=== PATIENT | male | born 1945 | race Caucasian/White ===

== ENCOUNTER 2019-02-19 08:31 | Inpatient (IN) | payer OTHER ==
[~2019-02-19] VITALS: Ht 185.4 cm; Wt 98.2 kg
[2019-02-19] MEDS ORDERED: TETanus/Pertussis (Acell)/Diphther VAC/PF (Tdap-Adult) 0.5ml syringe IMVAC ONE (09:05)
[2019-02-19 09:35] LABS: CLARITY,URINE CLEAR (Clear); COLOR,URINE YELLOW (Yellow); GLUCOSE, URINE >=1000 mg/dl (Neg); KETONES,URINE NEGATIVE (Neg); LEUKOCYTE ESTERASE ,URINE NEGATIVE (Neg); NITRITES, URINE NEGATIVE (Neg); OCCULT BLOOD,URINE TRACE-INTACT (Neg); PROTEIN,URINE 30 mg/dl (Neg); UA COLLECTION TYPE CLN CATCH MIDSTREAM; UROBILINOGEN,URINE 0.2 E.U/dL (0.2-1.0)
[2019-02-19 09:40] LABS: BASOPHILS # (AUTO) 0.1 X10'3 (0-0.2); BASOPHILS % (AUTO) 0.6 % (0-1); EOSINOPHILS # (AUTO) 0.2 X10'3 (0-0.9); HEMOGLOBIN 12.6 g/dl (14.0-17.9)
[2019-02-19 09:41] LABS: EOSINOPHILS % (AUTO) 1.1 % (0-6); HEMATOCRIT 37.5 % (42.0-52.0); LYMPHOCYTES % (AUTO) 5.3 % (21-51); MEAN CORPUSCULAR HEMOGLOBIN 28.2 PG (27.0-31.0); MEAN CORPUSCULAR HGB CONC 33.6 g/dL (33.0-36.5); MEAN PLATELET VOLUME 7.8 FL (7.4-10.4); MONOCYTES # (AUTO) 1.4 X10'3 (0-0.9); MONOCYTES % (AUTO) 7.9 % (2-12); NEUTROPHILS # (AUTO) 15.4 X10'3 (1.8-7.7); NEUTROPHILS % (AUTO) 85.1 % (42-75); PLATELET COUNT 250 X10'3 (140-440); RED BLOOD COUNT 4.46 X10'6 (4.70-6.10); RED CELL DISTRIBUTION WIDTH 12.4 % (11.5-14.5); WHITE BLOOD COUNT 18.1 X10'3 (4.5-11.0)
[2019-02-19 09:48] LABS: SQUAMOUS EPITHELIAL CELL,UR FEW /LPF (FEW)
[2019-02-19 09:49] LABS: BACTERIA,URINE FEW /HPF (Neg); RBC,URINE 0-2 /HPF (0-2); WBC,URINE 0-4 /HPF (0-4)
[2019-02-19 09:55] LABS: ALANINE AMINOTRANSFERASE 18 U/L (12-78); ALBUMIN 2.6 G/DL (3.4-5.0); ALBUMIN/GLOBULIN RATIO 0.5 (1.1-1.5); ALKALINE PHOSPHATASE 98 IU/L (46-116); ANION GAP 8 (8-16); ASPARTATE AMINO TRANSFERASE 9 U/L (10-37); BILIRUBIN,TOTAL 0.6 MG/DL (0.1-1.0); BLOOD UREA NITROGEN 17 MG/DL (7-18); BUN/CREATININE RATIO 17.3 (5.4-32.0); CHLORIDE 101 MMOL/L (99-107); CREATININE 0.98 MG/DL (0.60-1.10); GLUCOSE 275 MG/DL (70-104); POTASSIUM 4.3 MMOL/L (3.5-5.1); SODIUM 135 MMOL/L (135-145); TOTAL CARBON DIOXIDE 26.2 MMOL/L (24-32); TOTAL PROTEIN 7.5 G/DL (6.4-8.2); eGFR 75 ML/MIN
[2019-02-19] MEDS ORDERED: vancomycin/NS 1 GM ADD-VANTAGE 250 ML IV ONE (09:55)
[2019-02-19] MEDS ORDERED: mag hydrox/Alum hydrox/simeth 30ml oral suspension PO PRN (10:05)
[2019-02-19] MEDS ORDERED: MESSAGE TO PHARMACY PO ONE (10:05)
[2019-02-19] MEDS ORDERED: morphine 2 MG/ML inj. syringe IV PRN ×2 (10:05)
[2019-02-19] MEDS ORDERED: magnesium hydroxide 30ml (MOM) UD suspension PO PRN (10:05)
[2019-02-19] MEDS ORDERED: dextrose 50%-water 50ml dispensing syringe IV PRN ×2 (10:05)
[2019-02-19] MEDS ORDERED: dextrose ORAL solution 15 GM/59 ML bottle PO PRN ×2 (10:05)
[2019-02-19] MEDS ORDERED: ondansetron/PF 4mg/2ml inj IV PRN (10:05)
[2019-02-19] MEDS ORDERED: glucagon, human recombinant 1mg kit SUBCUT PRN (10:05)
[2019-02-19] MEDS ORDERED: acetaminophen 325mg tablet PO PRN ×2 (10:05)
[2019-02-19 10:22] LABS: HEMOGLOBIN A1C 11.3 % (4.5-6.2)
--- NOTE | 2019-02-19 12:11 | NUR ---
Patient in room ED 13. I have received report from Lexus and had the opportunity to ask questions and assume patient care.
--- NOTE | 2019-02-19 12:20 | NUR ---
Pt arrived on the floor. Tucked in, provided 2 lunch trays and provided comfort measures. Pt is alert, oriented and does not express concerns at this time
[2019-02-19] MEDS ORDERED: ATOR10TA70 PO (15:04)
[2019-02-19] MEDS ORDERED: CADE40GE2 TP (15:04)
[2019-02-19] MEDS ORDERED: AMLO2.5T2 PO (15:04)
[2019-02-19] MEDS ORDERED: ALOG25TA2 PO (15:04)
[2019-02-19] MEDS ORDERED: LISI40TA4 PO (15:04)
[2019-02-19] MEDS ORDERED: INSU100I25 SQ (15:04)
[2019-02-19] MEDS ORDERED: AMLO5TAB PO (15:51)
[2019-02-19] MEDS: piperacillin/tazo 4.5gm/100ml 100 ML IV SCH ×2 (16:21→23:34)
[2019-02-19 18:00] VITALS: BP 155/75
--- NOTE | 2019-02-19 18:10 | NUR ---
Problems reprioritized. Patient report given, questions answered & plan of care reviewed with Amber Morrison
[2019-02-19] MEDS: insulin Lispro (HumaLOG) vial - multi-dose SQ SCH ×2 (18:30→20:48)
[2019-02-19] MEDS ORDERED: vancomycin/NS 1 GM ADD-VANTAGE 250 ML IV SCH (20:00)
[2019-02-19] MEDS ORDERED: VANCOmycin 1250MG/NS 250ml Bag 250 ML IV SCH (20:00)
[2019-02-19] MEDS: lactobacillus rhamnosus 10,000 MMU CELLS/CAPSULE PO SCH (20:49)
[2019-02-19] MEDS: insulin glargine (Lantus) pen - multi-dose SQ SCH (20:49)
[2019-02-19 22:00] VITALS: BP 153/72
[2019-02-19] MEDS: VANCOmycin 1250MG/NS 250ml Bag 250 ML IV SCH (22:00)
[2019-02-20] VITALS (16 sets, daily range): BP systolic 135–184; BP diastolic 66–90
[2019-02-20 05:45] LABS: BASOPHILS % (AUTO) 0.3 % (0-1); EOSINOPHILS # (AUTO) 0.3 X10'3 (0-0.9); EOSINOPHILS % (AUTO) 2.4 % (0-6); HEMATOCRIT 35.8 % (42.0-52.0); HEMOGLOBIN 12.1 g/dl (14.0-17.9); LYMPHOCYTES # (AUTO) 1.1 X10'3 (1.1-4.8); LYMPHOCYTES % (AUTO) 7.9 % (21-51); MEAN CORPUSCULAR HEMOGLOBIN 28.6 PG (27.0-31.0); MEAN CORPUSCULAR HGB CONC 33.8 g/dL (33.0-36.5); MEAN CORPUSCULAR VOLUME 84.8 FL (78-98); MEAN PLATELET VOLUME 7.4 FL (7.4-10.4); MONOCYTES # (AUTO) 1.4 X10'3 (0-0.9); MONOCYTES % (AUTO) 9.8 % (2-12); NEUTROPHILS # (AUTO) 11.3 X10'3 (1.8-7.7); NEUTROPHILS % (AUTO) 79.6 % (42-75); PLATELET COUNT 235 X10'3 (140-440); RED BLOOD COUNT 4.22 X10'6 (4.70-6.10); RED CELL DISTRIBUTION WIDTH 12.2 % (11.5-14.5); WHITE BLOOD COUNT 14.3 X10'3 (4.5-11.0)
[2019-02-20 06:02] LABS: ALBUMIN 2.1 G/DL (3.4-5.0); ANION GAP 6 (8-16); BLOOD UREA NITROGEN 14 MG/DL (7-18); BUN/CREATININE RATIO 15.2 (5.4-32.0); CALCIUM 8.6 MG/DL (8.5-10.1); CHLORIDE 103 MMOL/L (99-107); CREATININE 0.92 MG/DL (0.60-1.10); GLUCOSE 253 MG/DL (70-104); POTASSIUM 4.2 MMOL/L (3.5-5.1); SODIUM 138 MMOL/L (135-145); TOTAL CARBON DIOXIDE 28.7 MMOL/L (24-32); eGFR 81 ML/MIN
--- NOTE | 2019-02-20 06:11 | NUR ---
received report from kev escalona
--- NOTE | 2019-02-20 06:15 | NUR ---
Report given to Mayra HERNANDEZ.
[2019-02-20] MEDS: lactobacillus rhamnosus 10,000 MMU CELLS/CAPSULE PO SCH ×2 (07:07→21:06)
[2019-02-20] MEDS: atorvastatin 10mg tablet PO SCH (07:07)
[2019-02-20] MEDS: amLODIPine 5mg tablet PO SCH (07:08)
[2019-02-20] MEDS: lisinopril 20mg tablet PO SCH (07:09)
[2019-02-20] MEDS: piperacillin/tazo 4.5gm/100ml 100 ML IV SCH ×3 (07:10→23:52)
[2019-02-20] MEDS: insulin Lispro (HumaLOG) vial - multi-dose SQ SCH ×4 (08:12→21:11)
[2019-02-20] MEDS: VANCOmycin 1250MG/NS 250ml Bag 250 ML IV SCH ×3 (10:30→21:52)
--- NOTE | 2019-02-20 10:31 | NUR ---
SCANNER ON COMPUTER NOT WORKING, CHECKED VANCTim PRIOR TO ADMIN, CONTINUE TO MONITOR
[2019-02-20] MEDS ORDERED: BUPIVAcaine/PF 2.5 mg/ml (0.25%) 30ml vial ONE (12:58)
--- NOTE | 2019-02-20 14:13 | NUR ---
pt wheeled down to OR with 1400 abx per Gabi in OR
[2019-02-20] MEDS ORDERED: ringers solution, lacted 1,000 ML IV SCH (14:54)
[2019-02-20] MEDS ORDERED: morphine 4 MG/ML inj SYRINge IV PRN (14:55)
[2019-02-20] MEDS ORDERED: ondansetron/PF 4mg/2ml inj IV PRN (14:55)
[2019-02-20] MEDS ORDERED: HYDROmorphone inj. 0.5 MG/0.5 ML DISP.SYRIN IV PRN (14:55)
[2019-02-20] MEDS ORDERED: fentaNYL/PF 50MCG/1 ML 2ML syringe ONE ×2 (14:58→15:15)
[2019-02-20] MEDS ORDERED: midazolam 2 mg/2 ml injection ONE (15:02)
[2019-02-20] MEDS ORDERED: ketamine 50mg/5ml syringe ONE (15:11)
[2019-02-20] MEDS ORDERED: labetalol 20mg/4ml (5mg/ml) syringe IV ONE (15:36)
[2019-02-20] MEDS ORDERED: propofol inj 20 ML IV ONE (15:36)
[2019-02-20] MEDS ORDERED: LIDOcaine 2% (20mg/ml) 5ml vial ONE (15:36)
[2019-02-20] MEDS ORDERED: BUPIVAcaine/PF 7.5mg/ml (0.75%) 10ml vial ONE (15:36)
--- NOTE | 2019-02-20 15:45 | NUR ---
Received from OR via BED, accompanied by Anesthesiologist DR GIVENS and report given by Anesthesiolgist. PATIENT A&OX4, DENIES PAIN, V/S WNL, NEUROVASCULAR CHECKS INTACT, 20G PIV RUE, SCD ON, WV DRESSING TO LEFT FOOT AT 125 CONTINOUS SUCTION WITH NO LEAKS DETECTED CDI ELEVATED
--- NOTE | 2019-02-20 16:15 | NUR ---
PATIENT A&OX4, DENIES PAIN, V/S WNL, NEUROVASCULAR CHECKS INTACT, 20G PIV RUE, SCD ON, WV DRESSING TO LEFT FOOT AT 125 CONTINOUS SUCTION WITH NO LEAKS DETECTED CDI ELEVATED . PATIWENT TAKEN TO 4017 WITH ALL BELONGINGS AND HOOKED UP TO MONITORS IN ROOM AND REPORT GIVEN TO PULMONOLOGIST/INTENSIVIST WHO HAS TAKEN OVER PATIENT CARE.
--- NOTE | 2019-02-20 17:10 | NUR ---
Patient given written DM education handout with verbal review and referral to outpatient DM education class on Sunday. Pt given written RD contact information. Addendum: 02/20/19 at [address] Amended: Links added.
--- NOTE | 2019-02-20 18:15 | NUR ---
report given to pola angulo
[2019-02-20] MEDS: HYDROcodone/acetaminophen 5mg/325mg tablet PO PRN (18:46)
[2019-02-20] MEDS: insulin glargine (Lantus) pen - multi-dose SQ SCH (21:12)
[2019-02-21 02:04] VITALS: BP 151/73
[2019-02-21] MEDS: HYDROcodone/acetaminophen 5mg/325mg tablet PO PRN (05:18)
[2019-02-21 05:50] LABS: ANION GAP 3 (8-16); BLOOD UREA NITROGEN 13 MG/DL (7-18); BUN/CREATININE RATIO 14.3 (5.4-32.0); CALCIUM 8.4 MG/DL (8.5-10.1); CHLORIDE 105 MMOL/L (99-107); CREATININE 0.91 MG/DL (0.60-1.10); GLUCOSE 203 MG/DL (70-104); POTASSIUM 4.2 MMOL/L (3.5-5.1); SODIUM 138 MMOL/L (135-145); TOTAL CARBON DIOXIDE 29.9 MMOL/L (24-32); eGFR 82 ML/MIN
[2019-02-21 05:54] LABS: BASOPHILS # (AUTO) 0.1 X10'3 (0-0.2); BASOPHILS % (AUTO) 0.4 % (0-1); EOSINOPHILS # (AUTO) 0.3 X10'3 (0-0.9); EOSINOPHILS % (AUTO) 2.1 % (0-6); HEMATOCRIT 35.1 % (42.0-52.0); HEMOGLOBIN 12.1 g/dl (14.0-17.9); LYMPHOCYTES # (AUTO) 1.2 X10'3 (1.1-4.8); LYMPHOCYTES % (AUTO) 9.7 % (21-51); MEAN CORPUSCULAR HEMOGLOBIN 28.6 PG (27.0-31.0); MEAN CORPUSCULAR HGB CONC 34.4 g/dL (33.0-36.5); MEAN CORPUSCULAR VOLUME 83.2 FL (78-98); MEAN PLATELET VOLUME 7.4 FL (7.4-10.4); MONOCYTES # (AUTO) 1.3 X10'3 (0-0.9); MONOCYTES % (AUTO) 9.9 % (2-12); NEUTROPHILS % (AUTO) 77.9 % (42-75); PLATELET COUNT 255 X10'3 (140-440); RED BLOOD COUNT 4.22 X10'6 (4.70-6.10); RED CELL DISTRIBUTION WIDTH 12.7 % (11.5-14.5); WHITE BLOOD COUNT 12.8 X10'3 (4.5-11.0)
[2019-02-21 06:00] VITALS: BP 148/64
--- NOTE | 2019-02-21 06:14 | NUR ---
Problems reprioritized. Patient report given, questions answered & plan of care reviewed with MARY Perez.
--- NOTE | 2019-02-21 06:30 | NUR ---
Patient in room ORTHO 4017. I have received report from Yolanda HERNANDEZ and had the opportunity to ask questions and assume patient care.
[2019-02-21] MEDS: atorvastatin 10mg tablet PO SCH (07:28)
[2019-02-21] MEDS: lactobacillus rhamnosus 10,000 MMU CELLS/CAPSULE PO SCH ×2 (07:31→20:00)
[2019-02-21] MEDS: lisinopril 20mg tablet PO SCH (07:31)
[2019-02-21] MEDS: amLODIPine 5mg tablet PO SCH (07:31)
[2019-02-21] MEDS: piperacillin/tazo 4.5gm/100ml 100 ML IV SCH ×2 (07:34→16:02)
[2019-02-21] MEDS: insulin Lispro (HumaLOG) vial - multi-dose SQ SCH ×4 (08:37→21:34)
[2019-02-21] MEDS ORDERED: VANCOMYCIN LEVEL IV ONE (09:30)
[2019-02-21 09:47] VITALS: BP 133/66
[2019-02-21] MEDS: VANCOmycin 1250MG/NS 250ml Bag 250 ML IV SCH (11:30)
[2019-02-21 14:00] VITALS: BP 161/76
[2019-02-21] MEDS: HYDROcodone/acetaminophen 10/325mg tab PO PRN (14:32)
[2019-02-21] MEDS ORDERED: magnesium hydroxide 30ml (MOM) UD suspension PO ONE (16:40)
[2019-02-21 18:00] VITALS: BP 163/80
--- NOTE | 2019-02-21 18:13 | NUR ---
Problems reprioritized. Patient report given, questions answered & plan of care reviewed with Rubens HERNANDEZ.
--- NOTE | 2019-02-21 19:00 | NUR ---
Patient in room ORTHO 4017. I have received report from Ana HERNANDEZ and had the opportunity to ask questions and assume patient care.
[2019-02-21] MEDS: docusate sod 100mg capsule PO SCH (20:00)
[2019-02-21] MEDS: insulin glargine (Lantus) pen - multi-dose SQ SCH (21:33)
[2019-02-21 22:00] VITALS: BP 142/67
[2019-02-22] MEDS: piperacillin/tazo 4.5gm/100ml 100 ML IV SCH ×3 (01:23→17:10)
[2019-02-22 06:00] VITALS: BP 155/72
[2019-02-22 06:25] LABS: ANION GAP 7 (8-16); BASOPHILS % (AUTO) 0.4 % (0-1); BLOOD UREA NITROGEN 11 MG/DL (7-18); BUN/CREATININE RATIO 11.8 (5.4-32.0); CALCIUM 8.8 MG/DL (8.5-10.1); CHLORIDE 104 MMOL/L (99-107); CREATININE 0.93 MG/DL (0.60-1.10); EOSINOPHILS # (AUTO) 0.3 X10'3 (0-0.9); EOSINOPHILS % (AUTO) 2.6 % (0-6); GLUCOSE 194 MG/DL (70-104); HEMATOCRIT 36.6 % (42.0-52.0); HEMOGLOBIN 12.4 g/dl (14.0-17.9); LYMPHOCYTES # (AUTO) 1.3 X10'3 (1.1-4.8); LYMPHOCYTES % (AUTO) 9.6 % (21-51); MEAN CORPUSCULAR HEMOGLOBIN 28.5 PG (27.0-31.0); MEAN CORPUSCULAR HGB CONC 33.9 g/dL (33.0-36.5); MEAN CORPUSCULAR VOLUME 84.3 FL (78-98); MEAN PLATELET VOLUME 7.4 FL (7.4-10.4); MONOCYTES # (AUTO) 1.1 X10'3 (0-0.9); MONOCYTES % (AUTO) 8.5 % (2-12); NEUTROPHILS # (AUTO) 10.4 X10'3 (1.8-7.7); NEUTROPHILS % (AUTO) 78.9 % (42-75); PLATELET COUNT 285 X10'3 (140-440); POTASSIUM 4.2 MMOL/L (3.5-5.1); RED BLOOD COUNT 4.35 X10'6 (4.70-6.10); RED CELL DISTRIBUTION WIDTH 12.7 % (11.5-14.5); SODIUM 139 MMOL/L (135-145); TOTAL CARBON DIOXIDE 28.5 MMOL/L (24-32); WHITE BLOOD COUNT 13.2 X10'3 (4.5-11.0); eGFR 80 ML/MIN
[2019-02-22] MEDS: docusate sod 100mg capsule PO SCH ×2 (07:39→20:48)
[2019-02-22] MEDS: atorvastatin 10mg tablet PO SCH (07:40)
[2019-02-22] MEDS: lactobacillus rhamnosus 10,000 MMU CELLS/CAPSULE PO SCH ×2 (07:40→20:48)
[2019-02-22] MEDS: amLODIPine 5mg tablet PO SCH (07:40)
[2019-02-22] MEDS: lisinopril 20mg tablet PO SCH (07:45)
[2019-02-22] MEDS: HYDROcodone/acetaminophen 10/325mg tab PO PRN ×2 (07:58→13:58)
[2019-02-22] MEDS: insulin Lispro (HumaLOG) vial - multi-dose SQ SCH ×4 (09:17→20:56)
[2019-02-22 10:00] VITALS: BP 141/72
--- NOTE | 2019-02-22 16:37 | NUR ---
PAGER ID: [phone] MESSAGE: Jewels [phone] re Williams Rasmussen in 4016- unable to obtain/keep iv access, pt is mrsa+, can we switch to PO or is it too soon? Due for Zosyn at this time. Is it still needed in light of current micro? Please advise, thanks!
[2019-02-22 18:00] VITALS: BP 147/80
--- NOTE | 2019-02-22 18:06 | NUR ---
Patient report given, questions answered & plan of care reviewed with Kira HERNANDEZ.
[2019-02-22] MEDS: insulin glargine (Lantus) pen - multi-dose SQ SCH (20:54)
[2019-02-22 22:00] VITALS: BP 157/78
[2019-02-23] MEDS: piperacillin/tazo 4.5gm/100ml 100 ML IV SCH ×3 (03:10→16:05)
[2019-02-23] MEDS: HYDROcodone/acetaminophen 10/325mg tab PO PRN ×3 (03:52→20:55)
[2019-02-23 06:00] VITALS: BP 124/66
--- NOTE | 2019-02-23 06:12 | NUR ---
REPORT GIVEN TO MARY ALLRED.
--- NOTE | 2019-02-23 06:15 | NUR ---
received report from kev moser
[2019-02-23 06:50] LABS: BASOPHILS % (AUTO) 0.4 % (0-1); EOSINOPHILS # (AUTO) 0.3 X10'3 (0-0.9); EOSINOPHILS % (AUTO) 2.3 % (0-6); HEMOGLOBIN 11.8 g/dl (14.0-17.9); LYMPHOCYTES # (AUTO) 1.3 X10'3 (1.1-4.8); LYMPHOCYTES % (AUTO) 10.4 % (21-51); MEAN CORPUSCULAR HEMOGLOBIN 28.7 PG (27.0-31.0); MEAN CORPUSCULAR HGB CONC 33.8 g/dL (33.0-36.5); MEAN CORPUSCULAR VOLUME 84.7 FL (78-98); MEAN PLATELET VOLUME 7.5 FL (7.4-10.4); MONOCYTES % (AUTO) 7.6 % (2-12); NEUTROPHILS # (AUTO) 10.1 X10'3 (1.8-7.7); NEUTROPHILS % (AUTO) 79.3 % (42-75); PLATELET COUNT 268 X10'3 (140-440); RED BLOOD COUNT 4.13 X10'6 (4.70-6.10); RED CELL DISTRIBUTION WIDTH 12.9 % (11.5-14.5); WHITE BLOOD COUNT 12.7 X10'3 (4.5-11.0)
[2019-02-23 06:53] LABS: ALBUMIN 1.9 G/DL (3.4-5.0); ANION GAP 8 (8-16); BLOOD UREA NITROGEN 12 MG/DL (7-18); BUN/CREATININE RATIO 11.9 (5.4-32.0); CALCIUM 8.3 MG/DL (8.5-10.1); CHLORIDE 103 MMOL/L (99-107); CREATININE 1.01 MG/DL (0.60-1.10); GLUCOSE 209 MG/DL (70-104); SODIUM 138 MMOL/L (135-145); TOTAL CARBON DIOXIDE 27.4 MMOL/L (24-32); eGFR 73 ML/MIN
[2019-02-23] MEDS: amLODIPine 5mg tablet PO SCH (07:23)
[2019-02-23] MEDS: lactobacillus rhamnosus 10,000 MMU CELLS/CAPSULE PO SCH ×2 (07:23→20:55)
[2019-02-23] MEDS: atorvastatin 10mg tablet PO SCH (07:23)
[2019-02-23] MEDS: lisinopril 20mg tablet PO SCH (07:24)
[2019-02-23] MEDS: docusate sod 100mg capsule PO SCH ×2 (07:24→20:00)
[2019-02-23] MEDS: insulin Lispro (HumaLOG) vial - multi-dose SQ SCH ×4 (08:44→21:04)
[2019-02-23 10:00] VITALS: BP 151/81
[2019-02-23] MEDS ORDERED: VANCOMYCIN LEVEL IV ONE (12:30)
[2019-02-23 18:00] VITALS: BP_SYST 128; BP_SYST 153; BP_DIAS 76; BP_DIAS 83
--- NOTE | 2019-02-23 18:17 | NUR ---
gave report to july,
[2019-02-23] MEDS: insulin glargine (Lantus) pen - multi-dose SQ SCH (21:03)
[2019-02-23 22:00] VITALS: BP 151/70
[2019-02-24] VITALS (17 sets, daily range): BP systolic 119–186; BP diastolic 52–87
[2019-02-24] MEDS ORDERED: VANCOMYCIN LEVEL IV ONE (00:30)
[2019-02-24] MEDS: piperacillin/tazo 4.5gm/100ml 100 ML IV SCH ×3 (00:33→17:52)
[2019-02-24 01:20] LABS: ANION GAP 5 (8-16); BASOPHILS # (AUTO) 0.1 X10'3 (0-0.2); BASOPHILS % (AUTO) 0.6 % (0-1); BLOOD UREA NITROGEN 13 MG/DL (7-18); BUN/CREATININE RATIO 13.7 (5.4-32.0); CALCIUM 8.7 MG/DL (8.5-10.1); CHLORIDE 103 MMOL/L (99-107); CREATININE 0.95 MG/DL (0.60-1.10); EOSINOPHILS # (AUTO) 0.3 X10'3 (0-0.9); EOSINOPHILS % (AUTO) 2.6 % (0-6); GLUCOSE 217 MG/DL (70-104); HEMATOCRIT 36.6 % (42.0-52.0); HEMOGLOBIN 12.4 g/dl (14.0-17.9); LYMPHOCYTES # (AUTO) 1.6 X10'3 (1.1-4.8); LYMPHOCYTES % (AUTO) 12.3 % (21-51); MEAN CORPUSCULAR HEMOGLOBIN 28.5 PG (27.0-31.0); MEAN CORPUSCULAR HGB CONC 33.7 g/dL (33.0-36.5); MEAN CORPUSCULAR VOLUME 84.3 FL (78-98); MEAN PLATELET VOLUME 7.3 FL (7.4-10.4); MONOCYTES # (AUTO) 0.9 X10'3 (0-0.9); MONOCYTES % (AUTO) 7.1 % (2-12); NEUTROPHILS # (AUTO) 9.7 X10'3 (1.8-7.7); NEUTROPHILS % (AUTO) 77.4 % (42-75); PLATELET COUNT 296 X10'3 (140-440); POTASSIUM 3.5 MMOL/L (3.5-5.1); RED BLOOD COUNT 4.34 X10'6 (4.70-6.10); RED CELL DISTRIBUTION WIDTH 12.7 % (11.5-14.5); SODIUM 139 MMOL/L (135-145); WHITE BLOOD COUNT 12.6 X10'3 (4.5-11.0); eGFR 78 ML/MIN
[2019-02-24] MEDS: HYDROcodone/acetaminophen 10/325mg tab PO PRN (03:10)
--- NOTE | 2019-02-24 06:11 | NUR ---
received report from roc, rn
[2019-02-24] MEDS: lactobacillus rhamnosus 10,000 MMU CELLS/CAPSULE PO SCH ×2 (07:41→19:43)
[2019-02-24] MEDS: docusate sod 100mg capsule PO SCH ×2 (07:41→19:43)
[2019-02-24] MEDS: lisinopril 20mg tablet PO SCH (07:42)
[2019-02-24] MEDS: atorvastatin 10mg tablet PO SCH (07:42)
[2019-02-24] MEDS: amLODIPine 5mg tablet PO SCH (07:42)
[2019-02-24] MEDS: insulin Lispro (HumaLOG) vial - multi-dose SQ SCH ×3 (08:35→19:02)
[2019-02-24] MEDS: diphenhydrAMINE 25mg capsule PO PRN (09:30)
--- NOTE | 2019-02-24 10:32 | NUR ---
gave report to hilario in recovery
--- NOTE | 2019-02-24 10:37 | NUR ---
pt wheeled down to or
--- NOTE | 2019-02-24 10:38 | NUR ---
sent pt 0800 cuauhtemoc to or w/patient
[2019-02-24] MEDS ORDERED: fentaNYL/PF 50MCG/1 ML 2ML syringe ONE (11:23)
[2019-02-24] MEDS ORDERED: MIDAZolam 5mg/5ml vial ONE (11:23)
[2019-02-24] MEDS ORDERED: propofol inj 20 ML IV ONE (12:00)
[2019-02-24] MEDS ORDERED: ROPIVAcaine 0.5% (5mg/ml) 30ml vial ONE (12:00)
--- NOTE | 2019-02-24 12:10 | NUR ---
Received from OR via BED, accompanied by Anesthesiologist DR WASHINGTON and report given by Anesthesiolgist. PATIENT A&OX4, DENIES PAIN, V/S WNL, NEUROVASCULAR CHECKS INTACT, 20G PIV RUE, SCD ON, WV DRESSING TO LEFT FOOT AT 125 CONTINOUS SUCTION WITH NO LEAKS DETECTED CDI ELEVATED
[2019-02-24] MEDS: VANCOmycin 1250MG/NS 250ml Bag 250 ML IV SCH ×3 (12:19→23:51)
--- NOTE | 2019-02-24 12:30 | NUR ---
RECEIVED REPORT FROM MARY PARISI IN RECOVERY
--- NOTE | 2019-02-24 12:50 | NUR ---
PATIENT A&OX4, DENIES PAIN, V/S WNL, NEUROVASCULAR CHECKS INTACT, 22G PIV RUE, SCD ON, WV DRESSING TO LEFT FOOT AT 125 CONTINOUS SUCTION WITH NO LEAKS DETECTED CDI ELEVATED WITH SCANT OUTPUT SO FAR.. PATIENT TAKEN TO 4017 WITH ALL BELONGINGS AND HOOKED UP TO MONITORS IN ROOM AND REPORT GIVEN TO FUNERAL DIRECTOR WHO HAS TAKEN OVER PATIENT CARE.
--- NOTE | 2019-02-24 17:17 | NUR ---
Initial: patient s/p I&D of left foot with wound vac placement; patient not in room at time of RD visit, will attempt bedside visit tomorrow for written high protein education handout with verbal review and reinforcement of DM education; spoke with bedside RN who reports patient would benefit from additional DM education. Great appetite, 100% PO intake. Will follow up tomorrow. Recommend: 1. continue carb controlled diet 2. monitor need for additional protein to support wound healing 3. reinforce DM education, provide written high protein education handout 4. weight per rx Addendum: 02/24/19 at [address] Amended: Links added.
--- NOTE | 2019-02-24 18:05 | NUR ---
gave report to kev mcdonald
--- NOTE | 2019-02-24 18:10 | NUR ---
Received report from MARY Nunez. Assumed patient care.
[2019-02-24] MEDS: insulin glargine (Lantus) pen - multi-dose SQ SCH (21:08)
--- NOTE | 2019-02-24 23:01 | NUR ---
No dressing change needed, pt had wound vac placed today. Running at 125 cont, minimal drainage, dressing is CDI. Addendum: 02/24/19 at 2302 by Sharmin Arriaga RN Amended: Links added.
[2019-02-25] MEDS: piperacillin/tazo 4.5gm/100ml 100 ML IV SCH ×3 (02:05→21:11)
--- NOTE | 2019-02-25 06:32 | NUR ---
Report given, questions answered and plan of care reviewed with MARY Suero.
--- NOTE | 2019-02-25 06:39 | NUR ---
Patient in room ORTHO 4017. I have received report from Sharmin HERNANDEZ and had the opportunity to ask questions and assume patient care.
[2019-02-25 06:51] VITALS: BP 154/83
[2019-02-25] MEDS: lactobacillus rhamnosus 10,000 MMU CELLS/CAPSULE PO SCH ×2 (07:18→19:12)
[2019-02-25] MEDS: amLODIPine 5mg tablet PO SCH (07:18)
[2019-02-25] MEDS: docusate sod 100mg capsule PO SCH ×2 (07:18→19:12)
[2019-02-25] MEDS: atorvastatin 10mg tablet PO SCH (07:18)
[2019-02-25] MEDS: lisinopril 20mg tablet PO SCH (07:19)
[2019-02-25] MEDS: VANCOmycin 1250MG/NS 250ml Bag 250 ML IV SCH ×2 (07:19→19:20)
[2019-02-25] MEDS ORDERED: VANCOMYCIN LEVEL IV ONE (07:30)
[2019-02-25] MEDS: insulin Lispro (HumaLOG) vial - multi-dose SQ SCH ×3 (08:57→19:12)
[2019-02-25 10:00] VITALS: BP 148/72
[2019-02-25] MEDS: HYDROcodone/acetaminophen 10/325mg tab PO PRN (10:19)
--- NOTE | 2019-02-25 16:58 | NUR ---
reviewed physical assessment
--- NOTE | 2019-02-25 17:29 | NUR ---
Follow up: patient with another member of the interdisciplinary team when attempted RD visit, pt unavailable at that time. Patient has increased protein needs, eating well, will send double eggs with breakfast and double meat with meals to meet protein needs. Will follow up with patient tomorrow for education. Recommend: 1. continue carb controlled diet 2. send double eggs with breakfast and double meat with meals to support wound healing 3. reinforce DM education, provide written high protein education handout 4. weight per rx Addendum: 02/25/19 at [address] Amended: Links added.
[2019-02-25 18:00] VITALS: BP 160/82
--- NOTE | 2019-02-25 18:10 | NUR ---
Received report from MARY Suero. Assumed patient care.
--- NOTE | 2019-02-25 18:29 | NUR ---
Problems reprioritized. Patient report given, questions answered & plan of care reviewed with Sharmin HERNANDEZ.
[2019-02-25] MEDS: insulin glargine (Lantus) pen - multi-dose SQ SCH (21:12)
[2019-02-25 22:00] VITALS: BP 141/77
[2019-02-26] MEDS: VANCOmycin 1250MG/NS 250ml Bag 250 ML IV SCH ×3 (01:23→17:45)
[2019-02-26] MEDS: piperacillin/tazo 4.5gm/100ml 100 ML IV SCH ×3 (04:43→20:43)
--- NOTE | 2019-02-26 06:21 | NUR ---
Patient report given, questions answered and plan of care reviewed with MARY Suero.
[2019-02-26 06:33] VITALS: BP 159/80
--- NOTE | 2019-02-26 06:49 | NUR ---
Patient in room ORTHO 4017. I have received report from Sharmin HERNANDEZ and had the opportunity to ask questions and assume patient care.
[2019-02-26] MEDS: docusate sod 100mg capsule PO SCH ×2 (08:00→19:09)
[2019-02-26] MEDS: insulin Lispro (HumaLOG) vial - multi-dose SQ SCH ×3 (08:30→19:07)
[2019-02-26] MEDS: lactobacillus rhamnosus 10,000 MMU CELLS/CAPSULE PO SCH ×2 (08:32→19:08)
[2019-02-26] MEDS: atorvastatin 10mg tablet PO SCH (08:32)
[2019-02-26] MEDS: amLODIPine 5mg tablet PO SCH (08:32)
[2019-02-26] MEDS: HYDROcodone/acetaminophen 10/325mg tab PO PRN ×2 (08:34→19:09)
[2019-02-26] MEDS: lisinopril 20mg tablet PO SCH (08:42)
[2019-02-26 10:00] VITALS: BP 156/71
--- NOTE | 2019-02-26 11:41 | NUR ---
Student documentation: I have reviewed all interventions, assessments performed and documented [facility] Student Medication Administration: For this medication-pass time frame, all medication were reviewed, dispensed, administered and documented per hospital policy by [facility].
--- NOTE | 2019-02-26 15:16 | NUR ---
WOUND VAC EDUCATION PROVIDED BY WOUND CARE 1. Patient instructed to call the Wound Center or their Home Health Agency immediately if: * They notice a change in the color or amount of the fluid in the canister. * Their wound looks more red than usual or has a foul smell. * The skin around their wound looks reddened or irritated. * The dressing feels loose or appears to be loose. * They experience any increase or changes in their pain. * The alarm will not turn off. 2. Patient instructed that they should not be disconnected from suction for more than 2 hours at a time. * If they are not able to get the suction back on, they need to remove the dressing and take all of the foam out of the wound. * Then moisten sterile gauze with normal saline and place on/in the wound. * Change the dressing once a day until arrangements have been made to replace the wound vac dressing. 3. Patient instructed to turn the wound vac machine OFF and call 911 or go to the ED immediately if their canister fills rapidly with blood. 4. If any of these occur while in the hospital tell a nurse immediately. Addendum: 02/26/19 at 1516 by Tyesha Crane RN Amended: Links added.
--- NOTE | 2019-02-26 15:58 | NUR ---
Follow up: patient seen at bedside and given written high protein education handout with verbal review, patient endorses a great appetite and verbalized understanding to continue eating increased protein at home while foot wound is healing. Reinforced DM education verbally with patient, discussed that lower blood glucose will improve healing, pt verbalized understanding. Patient has increased protein needs, eating well, sending double meat with meals to meet protein needs. Will continue to follow. Recommend: 1. continue carb controlled diet 2. send double meat with meals to support wound healing 3. weight per rx Addendum: 02/26/19 at [address] Amended: Links added.
[2019-02-26 18:00] VITALS: BP 144/71
--- NOTE | 2019-02-26 18:45 | NUR ---
Patient in room ORTHO 4017. I have received report from MARY Suero and had the opportunity to ask questions and assume patient care.
--- NOTE | 2019-02-26 18:51 | NUR ---
Problems reprioritized. Patient report given, questions answered & plan of care reviewed with Marcia HERNANDEZ.
[2019-02-26] MEDS: insulin glargine (Lantus) pen - multi-dose SQ SCH (21:01)
[2019-02-26 22:00] VITALS: BP 151/71
[2019-02-27] MEDS: VANCOmycin 1250MG/NS 250ml Bag 250 ML IV SCH ×3 (00:47→16:35)
[2019-02-27] MEDS: piperacillin/tazo 4.5gm/100ml 100 ML IV SCH (03:39)
[2019-02-27] MEDS: HYDROcodone/acetaminophen 10/325mg tab PO PRN (03:44)
[2019-02-27 06:00] VITALS: BP 146/77
--- NOTE | 2019-02-27 06:36 | NUR ---
Problems reprioritized. Patient report given, questions answered & plan of care reviewed with MARY Aragon.
--- NOTE | 2019-02-27 06:50 | NUR ---
Patient in room ORTHO 4017. I have received report from Marcia HERNANDEZ and had the opportunity to ask questions and assume patient care. All patient's needs met at this time.
[2019-02-27] MEDS: docusate sod 100mg capsule PO SCH ×2 (08:00→21:24)
[2019-02-27] MEDS: lisinopril 20mg tablet PO SCH (08:09)
[2019-02-27] MEDS: atorvastatin 10mg tablet PO SCH (08:09)
[2019-02-27] MEDS: lactobacillus rhamnosus 10,000 MMU CELLS/CAPSULE PO SCH ×2 (08:09→21:21)
[2019-02-27] MEDS: amLODIPine 5mg tablet PO SCH (08:09)
[2019-02-27 08:26] VITALS: BP 129/92
[2019-02-27] MEDS: insulin Lispro (HumaLOG) vial - multi-dose SQ SCH ×3 (09:29→18:51)
[2019-02-27 10:00] VITALS: BP 143/80
--- NOTE | 2019-02-27 11:42 | NUR ---
Student Medication Administration: For this medication-pass time frame, all medication were reviewed, dispensed, administered and documented per hospital policy [facility]. Student documentation: I have reviewed all interventions, assessments performed and documented by [facility].
[2019-02-27 18:00] VITALS: BP 164/75
--- NOTE | 2019-02-27 18:15 | NUR ---
Patient in room ORTHO 4017. I have received report from MARY Aragon and had the opportunity to ask questions and assume patient care.
--- NOTE | 2019-02-27 18:26 | NUR ---
Problems reprioritized. Patient report given, questions answered & plan of care reviewed with Karolyn HERNANDEZ. All patient's needs met at this time.
[2019-02-27] MEDS ORDERED: gadobutrol 10mmol/10ml inj. IV ONE (20:06)
[2019-02-27] MEDS: insulin glargine (Lantus) pen - multi-dose SQ SCH (21:24)
[2019-02-27 22:00] VITALS: BP 145/66
[2019-02-28] MEDS: VANCOmycin 1250MG/NS 250ml Bag 250 ML IV SCH ×4 (00:18→23:13)
[2019-02-28 06:00] VITALS: BP 140/72
--- NOTE | 2019-02-28 06:23 | NUR ---
Patient in room ORTHO 4017. I have received report from Karolyn HERNANDEZ and had the opportunity to ask questions and assume patient care.
--- NOTE | 2019-02-28 06:28 | NUR ---
Patient in room ORTHO 4017. I have received report from MARY Whittaker and had the opportunity to ask questions and assume patient care.
[2019-02-28] MEDS: docusate sod 100mg capsule PO SCH ×2 (07:20→21:09)
[2019-02-28] MEDS: lactobacillus rhamnosus 10,000 MMU CELLS/CAPSULE PO SCH ×2 (07:20→20:59)
[2019-02-28] MEDS: atorvastatin 10mg tablet PO SCH (07:20)
[2019-02-28] MEDS: amLODIPine 5mg tablet PO SCH (07:20)
[2019-02-28] MEDS: lisinopril 20mg tablet PO SCH (07:20)
[2019-02-28] MEDS: insulin Lispro (HumaLOG) vial - multi-dose SQ SCH ×3 (08:39→19:03)
[2019-02-28 10:00] VITALS: BP 165/87
--- NOTE | 2019-02-28 12:08 | NUR ---
Reassessment: Pt continues with wound VAC to left foot. Pt continues with 100% PO intake on CHO controlled diet receiving double eggs QD at breakfast and double protein TID meeting nutrient needs with adequate protein to support wound healing. [facility] 02/27. Will continue to follow. Recommend: 1. continue carb controlled diet 2. Double eggs QD at breakfast; double meat TIDWM to support wound healing 3. Routine bowel care 4. weight per rx Addendum: 02/28/19 at [address] Amended: Links added.
[2019-02-28 18:00] VITALS: BP 161/73
--- NOTE | 2019-02-28 18:14 | NUR ---
Problems reprioritized. Patient report given, questions answered & plan of care reviewed with Karolyn HERNANDEZ.
--- NOTE | 2019-02-28 18:30 | NUR ---
Patient in room ORTHO 4017. I have received report from MARY Whittaker and had the opportunity to ask questions and assume patient care.
[2019-02-28] MEDS: insulin glargine (Lantus) pen - multi-dose SQ SCH (20:59)
[2019-02-28 22:00] VITALS: BP 147/71
[2019-02-28] MEDS: diphenhydrAMINE 25mg capsule PO PRN (23:13)
--- NOTE | 2019-03-01 02:28 | NUR ---
Problems reprioritized. Patient report given, questions answered & plan of care reviewed with MARY Moreau.
--- NOTE | 2019-03-01 04:27 | NUR ---
Patient refusing to have blood drawn. Lab notified to re-time for a later time to re-attempt.
[2019-03-01 06:00] VITALS: BP 152/87
--- NOTE | 2019-03-01 06:33 | NUR ---
Problems reprioritized. Patient report given, questions answered & plan of care reviewed with Panfilo HERNANDEZ.
--- NOTE | 2019-03-01 06:35 | NUR ---
Patient in room ORTHO 4015. I have received report from Lizzeth HERNANDEZ and had the opportunity to ask questions and assume patient care.
[2019-03-01] MEDS: VANCOmycin 1250MG/NS 250ml Bag 250 ML IV SCH ×3 (07:55→23:57)
[2019-03-01] MEDS: docusate sod 100mg capsule PO SCH ×2 (07:56→19:37)
[2019-03-01] MEDS: amLODIPine 5mg tablet PO SCH (07:56)
[2019-03-01] MEDS: lactobacillus rhamnosus 10,000 MMU CELLS/CAPSULE PO SCH ×2 (07:56→19:30)
[2019-03-01] MEDS: lisinopril 20mg tablet PO SCH (07:56)
[2019-03-01] MEDS: atorvastatin 10mg tablet PO SCH (07:56)
[2019-03-01] MEDS: insulin Lispro (HumaLOG) vial - multi-dose SQ SCH ×3 (08:47→18:42)
[2019-03-01 10:00] VITALS: BP 152/90
[2019-03-01 17:00] VITALS: BP 143/77
--- NOTE | 2019-03-01 18:12 | NUR ---
Problems reprioritized. Patient report given, questions answered & plan of care reviewed with Lizzeth HERNANDEZ.
--- NOTE | 2019-03-01 18:25 | NUR ---
Patient in room ORTHO 4017. I have received report from Panfilo HERNANDEZ and had the opportunity to ask questions and assume patient care.
[2019-03-01] MEDS: HYDROcodone/acetaminophen 5mg/325mg tablet PO PRN (19:30)
[2019-03-01] MEDS: insulin glargine (Lantus) pen - multi-dose SQ SCH (21:16)
[2019-03-01 22:00] VITALS: BP 105/73
--- NOTE | 2019-03-02 06:00 | NUR ---
pt is refusing to have his vital signs taken at this time
--- NOTE | 2019-03-02 06:05 | NUR ---
Problems reprioritized. Patient report given, questions answered & plan of care reviewed with Mayra HERNANDEZ.
--- NOTE | 2019-03-02 06:06 | NUR ---
received report from kev abreu
[2019-03-02] MEDS: amLODIPine 5mg tablet PO SCH (07:23)
[2019-03-02] MEDS: HYDROcodone/acetaminophen 10/325mg tab PO PRN (07:23)
[2019-03-02] MEDS: atorvastatin 10mg tablet PO SCH (07:24)
[2019-03-02] MEDS: lisinopril 20mg tablet PO SCH (07:24)
[2019-03-02] MEDS: docusate sod 100mg capsule PO SCH ×2 (07:25→20:00)
[2019-03-02] MEDS: lactobacillus rhamnosus 10,000 MMU CELLS/CAPSULE PO SCH ×2 (07:25→20:43)
[2019-03-02 07:26] VITALS: BP 140/71
[2019-03-02] MEDS: VANCOmycin 1250MG/NS 250ml Bag 250 ML IV SCH ×3 (07:26→23:47)
[2019-03-02] MEDS: insulin Lispro (HumaLOG) vial - multi-dose SQ SCH ×3 (08:31→18:50)
[2019-03-02 10:00] VITALS: BP 147/70
[2019-03-02 10:40] LABS: ALANINE AMINOTRANSFERASE 25 U/L (12-78); ALBUMIN 2.3 G/DL (3.4-5.0); ALBUMIN/GLOBULIN RATIO 0.5 (1.1-1.5); ALKALINE PHOSPHATASE 78 IU/L (46-116); ANION GAP 5 (8-16); ASPARTATE AMINO TRANSFERASE 17 U/L (10-37); BILIRUBIN,TOTAL 0.3 MG/DL (0.1-1.0); BLOOD UREA NITROGEN 17 MG/DL (7-18); BUN/CREATININE RATIO 19.1 (5.4-32.0); CALCIUM 8.4 MG/DL (8.5-10.1); CHLORIDE 105 MMOL/L (99-107); CREATININE 0.89 MG/DL (0.60-1.10); GLUCOSE 246 MG/DL (70-104); POTASSIUM 3.4 MMOL/L (3.5-5.1); SODIUM 139 MMOL/L (135-145); TOTAL PROTEIN 6.9 G/DL (6.4-8.2); eGFR 84 ML/MIN
--- NOTE | 2019-03-02 10:57 | NUR ---
Reassessment: Pt PO 100% avg carb controlled meals w/ double proteins TIDWM meeting healing needs. [facility] 03/01. Will continue to monitor. Recommend: 1. continue carb controlled diet 2. Double eggs QD at breakfast; double meat TIDWM to support wound healing 3. Routine bowel care 4. weight per rx Addendum: 03/02/19 at [address] Amended: Links added.
[2019-03-02] MEDS ORDERED: potassium CL 10mEq/100ml bag 100 ML IV PRN ×2 (11:00)
[2019-03-02] MEDS ORDERED: potassium Cl 20 mEq SR tablet PO PRN (11:00)
[2019-03-02] MEDS: potassium Cl 20 mEq SR tablet PO PRN ×2 (11:20→15:36)
[2019-03-02] MEDS: diphenhydrAMINE 25mg capsule PO PRN ×2 (11:24→20:58)
[2019-03-02 18:00] VITALS: BP 160/73
--- NOTE | 2019-03-02 18:15 | NUR ---
GAVE REPORT TO July,
[2019-03-02] MEDS: insulin glargine (Lantus) pen - multi-dose SQ SCH (20:58)
[2019-03-02 22:00] VITALS: BP 157/77
--- NOTE | 2019-03-03 06:00 | NUR ---
Patient in room ORTHO 4017. I have received report from Vita RN and had the opportunity to ask questions and assume patient care.
[2019-03-03 07:13] VITALS: BP 161/83
[2019-03-03] MEDS: K and/or MAG REPLACEMENT MC SCH (07:29)
[2019-03-03] MEDS: lactobacillus rhamnosus 10,000 MMU CELLS/CAPSULE PO SCH ×2 (07:39→20:44)
[2019-03-03] MEDS: atorvastatin 10mg tablet PO SCH (07:39)
[2019-03-03] MEDS: amLODIPine 5mg tablet PO SCH (07:40)
[2019-03-03] MEDS: lisinopril 20mg tablet PO SCH (07:41)
[2019-03-03] MEDS: VANCOmycin 1250MG/NS 250ml Bag 250 ML IV SCH ×3 (07:42→23:48)
[2019-03-03] MEDS: docusate sod 100mg capsule PO SCH ×2 (07:44→20:00)
[2019-03-03] MEDS: insulin Lispro (HumaLOG) vial - multi-dose SQ SCH ×3 (08:26→18:49)
[2019-03-03 09:27] LABS: BASOPHILS # (AUTO) 0.1 X10'3 (0-0.2); BASOPHILS % (AUTO) 0.6 % (0-1); EOSINOPHILS # (AUTO) 0.3 X10'3 (0-0.9); EOSINOPHILS % (AUTO) 2.9 % (0-6); HEMATOCRIT 39.3 % (42.0-52.0); HEMOGLOBIN 13.3 g/dl (14.0-17.9); LYMPHOCYTES # (AUTO) 1.3 X10'3 (1.1-4.8); LYMPHOCYTES % (AUTO) 13.8 % (21-51); MEAN CORPUSCULAR HEMOGLOBIN 28.5 PG (27.0-31.0); MEAN CORPUSCULAR HGB CONC 33.9 g/dL (33.0-36.5); MEAN PLATELET VOLUME 7.7 FL (7.4-10.4); MONOCYTES # (AUTO) 0.6 X10'3 (0-0.9); MONOCYTES % (AUTO) 6.5 % (2-12); NEUTROPHILS # (AUTO) 7.2 X10'3 (1.8-7.7); NEUTROPHILS % (AUTO) 76.2 % (42-75); PLATELET COUNT 268 X10'3 (140-440); RED BLOOD COUNT 4.68 X10'6 (4.70-6.10); WHITE BLOOD COUNT 9.4 X10'3 (4.5-11.0)
[2019-03-03 09:43] LABS: ALANINE AMINOTRANSFERASE 27 U/L (12-78); ALBUMIN 2.6 G/DL (3.4-5.0); ALBUMIN/GLOBULIN RATIO 0.6 (1.1-1.5); ALKALINE PHOSPHATASE 86 IU/L (46-116); ANION GAP 9 (8-16); ASPARTATE AMINO TRANSFERASE 18 U/L (10-37); BILIRUBIN,TOTAL 0.5 MG/DL (0.1-1.0); BLOOD UREA NITROGEN 14 MG/DL (7-18); BUN/CREATININE RATIO 15.1 (5.4-32.0); CALCIUM 9.2 MG/DL (8.5-10.1); CHLORIDE 105 MMOL/L (99-107); CREATININE 0.93 MG/DL (0.60-1.10); GLUCOSE 228 MG/DL (70-104); POTASSIUM 4.2 MMOL/L (3.5-5.1); SODIUM 141 MMOL/L (135-145); TOTAL CARBON DIOXIDE 27.5 MMOL/L (24-32); TOTAL PROTEIN 7.3 G/DL (6.4-8.2); eGFR 80 ML/MIN
[2019-03-03 11:00] VITALS: BP 154/89
[2019-03-03 11:03] VITALS: BP 154/89
--- NOTE | 2019-03-03 11:24 | NUR ---
Student Medication Administration: For this medication-pass time frame 5297-1607, all medications were reviewed,administered and documented per hospital policy by Deepa Tatum. Student documentation:I have reviewed and agree with all interventions, assessments performed and documented by Deepa Tatum.
[2019-03-03] MEDS: HYDROcodone/acetaminophen 10/325mg tab PO PRN ×2 (16:09→21:42)
[2019-03-03] MEDS: HYDROcodone/acetaminophen 5mg/325mg tablet PO PRN (17:56)
[2019-03-03 18:00] VITALS: BP 151/89
--- NOTE | 2019-03-03 18:28 | NUR ---
Problems reprioritized. Patient report given, questions answered & plan of care reviewed with Vita HERNANDEZ.
[2019-03-03] MEDS: insulin glargine (Lantus) pen - multi-dose SQ SCH (21:44)
[2019-03-04 06:00] VITALS: BP 119/77
--- NOTE | 2019-03-04 06:31 | NUR ---
Patient in room ORTHO 4017. I have received report from MARY MACEDO and had the opportunity to ask questions and assume patient care.
[2019-03-04] MEDS ORDERED: VANCOMYCIN LEVEL IV ONE (07:30)
[2019-03-04] MEDS: VANCOmycin 1250MG/NS 250ml Bag 250 ML IV SCH ×3 (07:54→23:49)
[2019-03-04] MEDS: lactobacillus rhamnosus 10,000 MMU CELLS/CAPSULE PO SCH ×2 (07:54→20:56)
[2019-03-04] MEDS: docusate sod 100mg capsule PO SCH ×2 (07:54→20:00)
[2019-03-04] MEDS: atorvastatin 10mg tablet PO SCH (07:54)
[2019-03-04] MEDS: amLODIPine 5mg tablet PO SCH (07:56)
[2019-03-04] MEDS: lisinopril 20mg tablet PO SCH (07:58)
[2019-03-04] MEDS: K and/or MAG REPLACEMENT MC SCH (08:00)
[2019-03-04] MEDS: HYDROcodone/acetaminophen 10/325mg tab PO PRN ×3 (08:23→20:56)
[2019-03-04] MEDS: insulin Lispro (HumaLOG) vial - multi-dose SQ SCH ×3 (08:29→18:36)
[2019-03-04 10:00] VITALS: BP 140/70
--- NOTE | 2019-03-04 18:16 | NUR ---
Problems reprioritized. Patient report given, questions answered & plan of care reviewed with MARY AMAYA.
--- NOTE | 2019-03-04 18:25 | NUR ---
RECEIVED REPORT FROM RIGO HERNANDEZ AND ASSUMED PATIENT CARE
[2019-03-04 18:28] VITALS: BP 145/75
[2019-03-04] MEDS: insulin glargine (Lantus) pen - multi-dose SQ SCH (20:57)
[2019-03-04 22:00] VITALS: BP 132/73
[2019-03-05] MEDS: HYDROcodone/acetaminophen 10/325mg tab PO PRN (05:09)
[2019-03-05 06:00] VITALS: BP 140/67
--- NOTE | 2019-03-05 06:10 | NUR ---
REPORT GIVEN TO SAYDA HERNANDEZ
--- NOTE | 2019-03-05 06:27 | NUR ---
Patient in room ORTHO 4017. I have received report from Deepa HERNANDEZ and had the opportunity to ask questions and assume patient care.
[2019-03-05 07:29] VITALS: BP_SYST 158
[2019-03-05] MEDS: VANCOmycin 1250MG/NS 250ml Bag 250 ML IV SCH (07:29)
[2019-03-05] MEDS: lisinopril 20mg tablet PO SCH (07:29)
[2019-03-05] MEDS: atorvastatin 10mg tablet PO SCH (07:29)
[2019-03-05] MEDS: docusate sod 100mg capsule PO SCH (07:29)
[2019-03-05] MEDS: lactobacillus rhamnosus 10,000 MMU CELLS/CAPSULE PO SCH (07:29)
[2019-03-05] MEDS: amLODIPine 5mg tablet PO SCH (07:29)
[2019-03-05] MEDS ORDERED: VANCOMYCIN LEVEL IV ONE (07:30)
[2019-03-05] MEDS: K and/or MAG REPLACEMENT MC SCH (08:00)
--- NOTE | 2019-03-05 08:35 | NUR ---
I spoke to clinical pharmacist Jomar about vacno trough he said it was a fine trough.
[2019-03-05] MEDS: insulin Lispro (HumaLOG) vial - multi-dose SQ SCH (08:42)
--- NOTE | 2019-03-05 10:15 | NUR ---
Patient is discharged he is driving himself home with all of his medical supplies. New wound vac, and new wound vac dressing placed prior to discharge. No Pain medications given this morning because patient will be driving slef.
--- NOTE | 2019-03-05 12:09 | NUR ---
WOUND VAC EDUCATION PROVIDED BY WOUND CARE 1. Patient instructed to call the Wound Center or their Home Health Agency immediately if: * They notice a change in the color or amount of the fluid in the canister. * Their wound looks more red than usual or has a foul smell. * The skin around their wound looks reddened or irritated. * The dressing feels loose or appears to be loose. * They experience any increase or changes in their pain. * The alarm will not turn off. 2. Patient instructed that they should not be disconnected from suction for more than 2 hours at a time. * If they are not able to get the suction back on, they need to remove the dressing and take all of the foam out of the wound. * Then moisten sterile gauze with normal saline and place on/in the wound. * Change the dressing once a day until arrangements have been made to replace the wound vac dressing. 3. Patient instructed to turn the wound vac machine OFF and call 911 or go to the ED immediately if their canister fills rapidly with blood. 4. If any of these occur while in the hospital tell a nurse immediately. Addendum: 03/05/19 at 1210 by Tyesha Crane RN Amended: Links added.
== END 2019-03-05 10:15 | disposition home health service (06) | DRG 622 ==
LOC: ER 08:32 → ED HOLD 10:30 → ORTHO 4S 12:20
PROVIDERS: ADMIT Internal Medicine; ATTEND Internal Medicine
PROC: 0J9R0ZZ Drainage of Left Foot Subcutaneous Tissue and Fascia, Open Approach (ICD-10-PCS; 2019-02-20)
PROC: 0JBR0ZZ Excision of Left Foot Subcutaneous Tissue and Fascia, Open Approach (ICD-10-PCS; principal; 2019-02-20 14:59)
PROC: 0JBR0ZZ Excision of Left Foot Subcutaneous Tissue and Fascia, Open Approach (ICD-10-PCS; 2019-02-24)
PROC: 0J9900Z Drainage of Buttock Subcutaneous Tissue and Fascia with Drainage Device, Open Approach (ICD-10-PCS; 2019-02-24)
PROC: 05HY33Z Insertion of Infusion Device into Upper Vein, Percutaneous Approach (ICD-10-PCS; 2019-03-04)
DX: E11.69 Type 2 diabetes mellitus with other specified complication (principal); E43 Unspecified severe protein-calorie malnutrition; L02.416 Cutaneous abscess of left lower limb; L03.116 Cellulitis of left lower limb; M86.8X7 Other osteomyelitis, ankle and foot; E11.621 Type 2 diabetes mellitus with foot ulcer; L97.529 Non-pressure chronic ulcer of other part of left foot with unspecified severity; E11.40 Type 2 diabetes mellitus with diabetic neuropathy, unspecified; B95.62 Methicillin resistant Staphylococcus aureus infection as the cause of diseases classified elsewhere; E11.65 Type 2 diabetes mellitus with hyperglycemia; I10 Essential (primary) hypertension; K59.00 Constipation, unspecified; E78.5 Hyperlipidemia, unspecified; E11.51 Type 2 diabetes mellitus with diabetic peripheral angiopathy without gangrene; D63.8 Anemia in other chronic diseases classified elsewhere; D72.829 Elevated white blood cell count, unspecified; E11.42 Type 2 diabetes mellitus with diabetic polyneuropathy; E87.6 Hypokalemia; Z83.3 Family history of diabetes mellitus; Z85.820 Personal history of malignant melanoma of skin
CPT/HCPCS: 36415; 36569; 71045; 73700; 73720; 76937; 80048; 80053; 80202; 81001; 82948; 83036; 85025; 85610; 85651; 87070; 87077; 87081; 87186; 90471; 93005; 93926; 96365; 97112; 97116; 97161; 97530; 99285; A4618; A6550; A7000; A9585; G0378; J1815; J2001; J2250; J2543; J2704; J2795; J3010; J3370; J3490; J7120; Q0163

== ENCOUNTER 2019-03-10 09:45 | Day surgery (SDC) | payer OTHER, MEDICARE ==
[~2019-03-10 09:45] MED LIST: ALOG25TA2 PO; AMLO5TAB PO; ATOR10TA70 PO; INSU100I25 SQ; LISI40TA4 PO
[2019-03-10] MEDS ORDERED: LIDOcaine 2% 5ml jelly ONE (10:13)
== END 2019-03-10 11:55 | disposition home or self-care (01) ==
LOC: WOUND CARE 09:45
PROVIDERS: ATTEND Surgery
DX: E11.621 Type 2 diabetes mellitus with foot ulcer (principal); L97.512 Non-pressure chronic ulcer of other part of right foot with fat layer exposed; L97.522 Non-pressure chronic ulcer of other part of left foot with fat layer exposed; E11.40 Type 2 diabetes mellitus with diabetic neuropathy, unspecified; E11.65 Type 2 diabetes mellitus with hyperglycemia; I10 Essential (primary) hypertension; E78.5 Hyperlipidemia, unspecified; E11.69 Type 2 diabetes mellitus with other specified complication; M86.8X7 Other osteomyelitis, ankle and foot; E11.51 Type 2 diabetes mellitus with diabetic peripheral angiopathy without gangrene; E43 Unspecified severe protein-calorie malnutrition; Z68.28 Body mass index [BMI] 28.0-28.9, adult; Z85.828 Personal history of other malignant neoplasm of skin
CPT/HCPCS: 36416; 82948; 97597; A4663; A6021; A6154; A6446

== ENCOUNTER 2019-03-17 09:50 | Day surgery (SDC) | payer OTHER, MEDICARE ==
[2019-03-17] MEDS ORDERED: LIDOcaine 2% 5ml jelly ONE (10:39)
== END 2019-03-17 11:32 | disposition home or self-care (01) ==
LOC: WOUND CARE 09:50
PROVIDERS: ATTEND Surgery
DX: E11.621 Type 2 diabetes mellitus with foot ulcer (principal); L97.512 Non-pressure chronic ulcer of other part of right foot with fat layer exposed; L97.522 Non-pressure chronic ulcer of other part of left foot with fat layer exposed; E11.40 Type 2 diabetes mellitus with diabetic neuropathy, unspecified; E11.65 Type 2 diabetes mellitus with hyperglycemia; I10 Essential (primary) hypertension; E78.5 Hyperlipidemia, unspecified; E11.69 Type 2 diabetes mellitus with other specified complication; M86.8X7 Other osteomyelitis, ankle and foot; E11.51 Type 2 diabetes mellitus with diabetic peripheral angiopathy without gangrene; E43 Unspecified severe protein-calorie malnutrition; Z68.28 Body mass index [BMI] 28.0-28.9, adult; Z85.828 Personal history of other malignant neoplasm of skin
CPT/HCPCS: 97597; A6021; A6154; A6446

== ENCOUNTER 2019-03-31 08:13 | Day surgery (SDC) | payer OTHER, MEDICARE ==
[2019-03-31] MEDS ORDERED: LIDOcaine 2% 5ml jelly ONE (10:08)
== END 2019-03-31 11:27 | disposition home or self-care (01) ==
LOC: WOUND CARE 08:13
PROVIDERS: ATTEND Surgery
DX: E11.621 Type 2 diabetes mellitus with foot ulcer (principal); L97.512 Non-pressure chronic ulcer of other part of right foot with fat layer exposed; L97.522 Non-pressure chronic ulcer of other part of left foot with fat layer exposed; E11.40 Type 2 diabetes mellitus with diabetic neuropathy, unspecified; E11.65 Type 2 diabetes mellitus with hyperglycemia; I10 Essential (primary) hypertension; E78.5 Hyperlipidemia, unspecified; E11.69 Type 2 diabetes mellitus with other specified complication; M86.8X7 Other osteomyelitis, ankle and foot; E11.51 Type 2 diabetes mellitus with diabetic peripheral angiopathy without gangrene; E43 Unspecified severe protein-calorie malnutrition; Z68.28 Body mass index [BMI] 28.0-28.9, adult; Z85.828 Personal history of other malignant neoplasm of skin
CPT/HCPCS: 11042; 82948; 97597; A6266; 11045; A4663; A6243

== ENCOUNTER 2019-04-07 08:15 | Day surgery (SDC) | payer OTHER, MEDICARE ==
[2019-04-07] MEDS ORDERED: LIDOcaine/PRILOcaine 5gm cream TP ONE (09:38)
== END 2019-04-07 11:05 | disposition home or self-care (01) ==
LOC: WOUND CARE 08:15
PROVIDERS: ATTEND Surgery
DX: E11.621 Type 2 diabetes mellitus with foot ulcer (principal); L97.512 Non-pressure chronic ulcer of other part of right foot with fat layer exposed; L97.522 Non-pressure chronic ulcer of other part of left foot with fat layer exposed; E11.40 Type 2 diabetes mellitus with diabetic neuropathy, unspecified; E11.65 Type 2 diabetes mellitus with hyperglycemia; I10 Essential (primary) hypertension; E78.5 Hyperlipidemia, unspecified; E11.69 Type 2 diabetes mellitus with other specified complication; M86.8X7 Other osteomyelitis, ankle and foot; E11.51 Type 2 diabetes mellitus with diabetic peripheral angiopathy without gangrene; E43 Unspecified severe protein-calorie malnutrition; Z68.28 Body mass index [BMI] 28.0-28.9, adult; Z85.828 Personal history of other malignant neoplasm of skin
CPT/HCPCS: 11042; 36416; 82948; 97597; A6209; A4663; A6021; A6154; A6446

== ENCOUNTER 2019-04-23 08:12 | Day surgery (SDC) | payer OTHER, MEDICARE ==
[2019-04-23] MEDS ORDERED: LIDOcaine/PRILOcaine 5gm cream TP ONE (09:19)
== END 2019-04-23 10:45 | disposition home or self-care (01) ==
LOC: WOUND CARE 08:12
PROVIDERS: ATTEND Surgery
DX: E11.621 Type 2 diabetes mellitus with foot ulcer (principal); L97.512 Non-pressure chronic ulcer of other part of right foot with fat layer exposed; L97.522 Non-pressure chronic ulcer of other part of left foot with fat layer exposed; E11.69 Type 2 diabetes mellitus with other specified complication; M86.8X7 Other osteomyelitis, ankle and foot; E11.42 Type 2 diabetes mellitus with diabetic polyneuropathy; E11.65 Type 2 diabetes mellitus with hyperglycemia; E11.51 Type 2 diabetes mellitus with diabetic peripheral angiopathy without gangrene; I10 Essential (primary) hypertension; E78.5 Hyperlipidemia, unspecified; E43 Unspecified severe protein-calorie malnutrition; F41.9 Anxiety disorder, unspecified; Z68.28 Body mass index [BMI] 28.0-28.9, adult; Z86.14 Personal history of Methicillin resistant Staphylococcus aureus infection; Z85.828 Personal history of other malignant neoplasm of skin
CPT/HCPCS: 36416; 82948; A6021; A6154; A6446

== ENCOUNTER 2022-11-08 13:35 | Emergency (ER) | payer OTHER, BC ==
[~2022-11-08 13:35] MED LIST changes: -INSU100I25 SQ; +INSU100I27 SQ; +LISI40TA13 PO; -LISI40TA4 PO
== END 2022-11-08 14:09 | disposition left against medical advice (07) ==
LOC: ER 13:36
DX: R11.0 Nausea (principal); Z53.21 Procedure and treatment not carried out due to patient leaving prior to being seen by health care provider